=== PATIENT | female | born 1960 | race Two or more races ===

== ENCOUNTER 2019-05-22 21:41 | Emergency (ER) | payer OTHER ==
[~2019-05-22] VITALS: Ht 157.5 cm; Wt 74.4 kg
[2019-05-22] MEDS ORDERED: GELATIN SPONGE SIZE 12-7MM SPONGE. ONE (22:05)
[2019-05-22 22:20] LABS: BASO # 0.1 x10^3/uL (0.0-0.2); BASO % 1 % (0-3); EOS # 0.4 x10^3/uL (0.0-0.7); EOS % 5 % (0-3); HEMATOCRIT 37.5 % (36.0-47.0); HEMOGLOBIN 12.7 g/dL (12.0-15.5); LYMPH # 1.6 x10^3/uL (1.0-4.8); LYMPH % 23 % (24-48); MEAN CORPUSCULAR HEMOGLOBIN 33 pg (25-35); MEAN CORPUSCULAR HGB CONC 34 g/dL (31-37); MEAN CORPUSCULAR VOLUME 98 fL (79-100); MONO # 0.5 x10^3/uL (0.0-1.1); MONO % 7 % (0-9); NEUT # 4.6 x10^3/uL (1.8-7.7); NEUT % 64 % (31-73); PLATELET COUNT 153 x10^3/uL (140-400); RED BLOOD COUNT 3.82 x10^6/uL (3.50-5.40); RED CELL DISTRIBUTION WIDTH 13.2 % (11.5-14.5); WHITE BLOOD COUNT 7.2 x10^3/uL (4.0-11.0)
[2019-05-22 22:21] VITALS: BP 119/62
[2019-05-22 22:29] LABS: PROTHROMBIN TIME PATIENT 26.3 SEC (11.7-14.0)
[2019-05-22] MEDS ORDERED: GELATIN SPONGE SIZE 12-7MM SPONGE. TP ONE (22:30)
--- NOTE | 2019-05-22 22:40 | PHYS DOC ---
Past Medical History Past Medical History: Anemia, High Cholesterol, Hypertension Additional Past Medical Histor: secondary hyperparathyroid, "thick blood", immune glomerulonephritis Past Surgical History: Hysterectomy Additional Past Surgical Histo: , kidney transplant Additional Information: Nonsmoker Alcohol Use: None Drug Use: None Adult General Chief Complaint Chief Complaint: DIALYSIS PROBLEM HPI HPI Patient is a 59-year-old female who presents with uncontrollable bleeding after dialysis. She was transferred by EMS from her dialysis clinic due to 45 minutes uncontrollable bleeding. They tried to hold pressure, but it did not stop. They bandaged and clamped it to control the bleeding for transfer by EMS. There was no visible bleeding with the clamp in place. On Sunday this week her INR was 1.3 so her dose of Warfarin was increased from 2 mg to 4 mg. She has had no other bleeding or bruising and no head injury. She is having no nausea, vomiting, dizziness, lightheadedness, or pain. She has never had a bleeding episode like this before. Review of Systems Review of Systems Constitutional: Denies fever or chills Eyes: Denies redness or eye pain HENT: Denies nasal congestion or sore throat Respiratory: Denies cough or shortness of breath Cardiovascular: Denies chest pain or palpitations GI: Denies abdominal pain, nausea, or vomiting : Denies dysuria or hematuria Musculoskeletal: Denies back pain or joint pain Integument: Denies rash or skin lesions Neurologic: Denies headache, focal weakness or sensory changes Complete systems were reviewed and found to be within normal limits, except as documented in this note. Current Medications Current Medications Current Medications Medications (Trade) Dose Ordered Sig/[facility] Start Time Stop Time Status Last Admin Dose Admin Gelatin (Gelfoam Size 12-7mm) 1 each 1X ONCE 05/22/19 22:30 05/22/19 22:31 DC 05/22/19 22:47 1 EACH Allergies Allergies Allergies Coded Allergies Type Severity Reaction Last Updated Verified No Known Drug Allergies 05/22/19 No Physical Exam Physical Exam Constitutional: Well developed, well nourished, no acute distress, non-toxic appearance HENT: Normocephalic, atraumatic, oropharynx moist Eyes: PERRL, EOMI, conjunctiva normal, no discharge Neck: Normal range of motion, no tenderness, supple Cardiovascular: Heart rate normal, regular rhythm Lungs & Thorax: Bilateral breath sounds clear to auscultation, no wheezing Abdomen: Soft, no tenderness Skin: Warm, dry, no erythema, no rash, left elbow clamp is removed and bandage is uncovered to find a bleeding puncture site. Puncture site above is not bleeding. Back: No tenderness, no CVA tenderness Extremities: No tenderness, ROM intact, no edema Neurologic: Alert and oriented X 3, normal motor function, normal sensory function, no focal deficits noted Psychologic: Affect normal, judgement normal, mood normal Current Patient Data Vital Signs Vital Signs Date Time Temp Pulse Resp B/P (MAP) Pulse Ox O2 Delivery O2 Flow Rate FiO2 05/22/19 22:21 74 119/62 (81) 97 Room Air 05/22/19 21:52 98.4 20 98.4 Lab Values Laboratory Tests Test 05/22/19 22:13 White Blood Count 7.2 x10^3/uL (4.0-11.0) Red Blood Count 3.82 x10^6/uL (3.50-5.40) Hemoglobin 12.7 g/dL (12.0-15.5) Hematocrit 37.5 % (36.0-47.0) Mean Corpuscular Volume 98 fL (79-100) Mean Corpuscular Hemoglobin 33 pg (25-35) Mean Corpuscular Hemoglobin Concent 34 g/dL (31-37) Red Cell Distribution Width 13.2 % (11.5-14.5) Platelet Count 153 x10^3/uL (140-400) Neutrophils (%) (Auto) 64 % (31-73) Lymphocytes (%) (Auto) 23 % (24-48) L Monocytes (%) (Auto) 7 % (0-9) Eosinophils (%) (Auto) 5 % (0-3) H Basophils (%) (Auto) 1 % (0-3) Neutrophils # (Auto) 4.6 x10^3/uL (1.8-7.7) Lymphocytes # (Auto) 1.6 x10^3/uL (1.0-4.8) Monocytes # (Auto) 0.5 x10^3/uL (0.0-1.1) Eosinophils # (Auto) 0.4 x10^3/uL (0.0-0.7) Basophils # (Auto) 0.1 x10^3/uL (0.0-0.2) Prothrombin Time 26.3 SEC (11.7-14.0) H Prothrombin Time INR 2.4 (0.8-1.1) H PTT 43 SEC (24-38) H Laboratory Tests 05/22/19 22:13 EKG EKG [] Radiology/Procedures Radiology/Procedures [] Course & Med Decision Making Course & Med Decision Making Pertinent Lab studies reviewed. (See chart for details) Ms. Cavazos is a 59-year-old female who presented for uncontrollable bleeding. She was at dialysis clinic, and at the end of her dialysis treatment they were not able to control the bleeding from her puncture site. They held pressure for 45 minutes, and then a clamp was placed and she was transferred by EMS to the ED. On arrival, there is no active bleeding visible through the bandage and clamp. Once the clamp was removed in the bandage and removed, there is active bleeding from the puncture site. Gel Foam was placed with a pressure bandage, and pressure was held for 5 minutes. After 5 minutes there is no active bleeding visible through the bandaging. On Sunday her INR was 1.3 so her dose of Warfarin was increased from 2 mg to 4 mg. Today her INR is 2.5 and her other laboratory values are not significant. We told her to hold her evening dose of Warfarin and continue normal dose starting tomorrow. Patient stable for discharge with outpatient follow-up with PCP. Discussed findings and plan with patient and family, who acknowledge understanding and agreement. [] Dragon Disclaimer Dragon Disclaimer This electronic medical record was generated, in whole or in part, using a voice recognition dictation system. Departure Departure Impression: Primary Impression: Hemorrhage from dialysis shunt Disposition: 01 HOME, SELF-CARE Condition: STABLE Referrals: NO PCP (PCP) Patient Instructions: Dialysis, Care After Additional Instructions: INR 2.5. Hold Sunday's dose of Coumadin, then continue normal Coumadin as previously directed. Problem Qualifiers Primary Impression: Hemorrhage from dialysis shunt Encounter type: initial encounter Qualified Codes: T82.838A - Hemorrhage due to vascular prosthetic devices, implants and grafts, initial encounter TYLER REGAN DO May 22, 2019 22:40
== END 2019-05-22 22:56 | disposition home or self-care (01) ==
LOC: ER 21:41
DX: T82.838A Hemorrhage due to vascular prosthetic devices, implants and grafts, initial encounter (principal); E78.00 Pure hypercholesterolemia, unspecified; I10 Essential (primary) hypertension; Z90.710 Acquired absence of both cervix and uterus; Z94.0 Kidney transplant status; Y84.8 Other medical procedures as the cause of abnormal reaction of the patient, or of later complication, without mention of misadventure at the time of the procedure; Y92.89 Other specified places as the place of occurrence of the external cause
CPT/HCPCS: 36415; 85025; 85610; 85730; 99284

== ENCOUNTER 2019-07-29 21:57 | Emergency (ER) | payer OTHER ==
[~2019-07-29] VITALS: Ht 157.5 cm; Wt 80.7 kg
[2019-07-29 22:15] VITALS: BP 161/85
--- NOTE | 2019-07-29 22:40 | PHYS DOC ---
Past Medical History Past Medical History: Anemia, High Cholesterol, Hypertension Additional Past Medical Histor: secondary hyperparathyroid, "thick blood", immune glomerulonephritis Past Surgical History: Hysterectomy Additional Past Surgical Histo: , kidney transplant Alcohol Use: None Drug Use: None Adult General Chief Complaint Chief Complaint: DIALYSIS PROBLEM HPI HPI Patient is a 59 year old female who is a dialysis patient who receive dialysis ending around 6:45 PM. Patient states that her dialysis fistula would not stop bleeding after dialysis. She states that after would not stop bleeding that she decided she should come to the ER. Denies any other complaints. Denies dizziness. Denies chest pain. Review of Systems Review of Systems Constitutional: Denies fever or chills [] Eyes: Denies change in visual acuity, redness, or eye pain [] HENT: Denies nasal congestion or sore throat [] Respiratory: Denies cough or shortness of breath [] Cardiovascular: No additional information not addressed in HPI [] GI: Denies abdominal pain, nausea, vomiting, bloody stools or diarrhea [] : Denies dysuria or hematuria [] Musculoskeletal: Denies back pain or joint pain [] Integument: Reports bleeding from L fistula. Neurologic: Denies headache, focal weakness or sensory changes [] Endocrine: Denies polyuria or polydipsia [] Complete systems were reviewed and found to be within normal limits, except as documented in this note. Allergies Allergies Allergies Coded Allergies Type Severity Reaction Last Updated Verified No Known Drug Allergies 05/22/19 No Physical Exam Physical Exam Constitutional: Well developed, well nourished, no acute distress, non-toxic appearance. [] HENT: Normocephalic, atraumatic, bilateral external ears normal, oropharynx moist, no oral exudates, nose normal. [] Eyes: PERRLA, EOMI, conjunctiva normal, no discharge. [] Neck: Normal range of motion, no tenderness, supple, no stridor. [] Cardiovascular:Heart rate regular rhythm, no murmur [] Lungs & Thorax: Bilateral breath sounds clear to auscultation [] Abdomen: Bowel sounds normal, soft, no tenderness, no masses, no pulsatile masses. [] Skin: bleeding appears to have stopped from the fistula. Back: No tenderness, no CVA tenderness. [] Extremities: No tenderness, no cyanosis, no clubbing, ROM intact, no edema. [] Neurologic: Alert and oriented X 3, normal motor function, normal sensory function, no focal deficits noted. [] Psychologic: Affect normal, judgement normal, mood normal. [] Current Patient Data Vital Signs Vital Signs Date Time Temp Pulse Resp B/P (MAP) Pulse Ox O2 Delivery O2 Flow Rate FiO2 07/29/19 22:15 98.2 67 18 161/85 (110) 97 Room Air 98.2 EKG EKG [] Radiology/Procedures Radiology/Procedures [] Course & Med Decision Making Course & Med Decision Making Pertinent Labs and Imaging studies reviewed. (See chart for details) Nursing held pressure to site before I arrived in room. Dialysis site has stopped bleeding. Will d/c home. Dragon Disclaimer [email or web address] Disclaimer This electronic medical record was generated, in whole or in part, using a voice recognition dictation system. Departure Departure Impression: Primary Impression: Complication of AV dialysis fistula Disposition: HOME, SELF-CARE Condition: STABLE Referrals: NO PCP (PCP) Additional Instructions: Thank you for visiting [facility]. We appreciate you trusting us with your care. If any additional problems come up don't hesitate to return to visit us. Please follow up with your primary care provider so they can plan ad ditional care if needed and know about the problem that you had. If symptoms worsen come back to the Emergency Department. Any concerning symptoms that start such as chest pain, shortness of air, weakness or numbness on one side of the body, running high fevers or any other concerning symptoms return to the ER. Please return to ER if starts bleeding again. Problem Qualifiers Primary Impression: Complication of AV dialysis fistula Encounter type: initial encounter Qualified Codes: T82.9XXA - Unspecified complication of cardiac and vascular prosthetic device, implant and graft, initial encounter TYLER LERNER APRN Jul 29, 2019 22:39
== END 2019-07-29 22:52 | disposition home or self-care (01) ==
LOC: ER 21:57
DX: T82.590A Other mechanical complication of surgically created arteriovenous fistula, initial encounter (principal); E78.00 Pure hypercholesterolemia, unspecified; I10 Essential (primary) hypertension; Z90.710 Acquired absence of both cervix and uterus; Z98.890 Other specified postprocedural states
CPT/HCPCS: 99281; 99283

== ENCOUNTER → 2019-09-01 | Outpatient (CLI) | payer OTHER ==
[2019-09-01 10:38] LABS: BASO # 0.1 x10^3/uL (0.0-0.2); BASO % 1 % (0-3); EOS # 0.3 x10^3/uL (0.0-0.7); EOS % 6 % (0-3); HEMATOCRIT 34.5 % (36.0-47.0); HEMOGLOBIN 11.7 g/dL (12.0-15.5); LYMPH # 1.5 x10^3/uL (1.0-4.8); LYMPH % 25 % (24-48); MEAN CORPUSCULAR HEMOGLOBIN 37 pg (25-35); MEAN CORPUSCULAR HGB CONC 34 g/dL (31-37); MEAN CORPUSCULAR VOLUME 108 fL (79-100); MONO # 0.6 x10^3/uL (0.0-1.1); MONO % 10 % (0-9); NEUT # 3.4 x10^3/uL (1.8-7.7); NEUT % 59 % (31-73); PLATELET COUNT 179 x10^3/uL (140-400); RED BLOOD COUNT 3.21 x10^6/uL (3.50-5.40); RED CELL DISTRIBUTION WIDTH 14.4 % (11.5-14.5); WHITE BLOOD COUNT 5.9 x10^3/uL (4.0-11.0)
[2019-09-01 11:20] LABS: ALBUMIN 3.8 g/dL (3.4-5.0); ALBUMIN/GLOBULIN RATIO 0.9 (1.0-1.7); CALCIUM 9.2 mg/dL (8.5-10.1); CREATININE 11.2 mg/dL (0.6-1.0); GFR 3.5; POTASSIUM 4.4 mmol/L (3.5-5.1); TOTAL BILIRUBIN 0.3 mg/dL (0.2-1.0); TOTAL PROTEIN 7.9 g/dL (6.4-8.2)
[2019-09-01 19:13] LABS: RHEUMATOID FACTOR <10.0 IU/mL (0.0-13.9)
[2019-09-02 08:13] LABS: HEMOGLOBIN A1C 5.2 % (4.8-5.6)
== END | disposition home or self-care (01) ==
LOC: LAB 10:09
PROVIDERS: ATTEND Podiatrist Foot & Ankle Surgery
DX: G60.9 Hereditary and idiopathic neuropathy, unspecified (principal)
CPT/HCPCS: 36415; 80053; 82607; 82746; 83036; 84165; 84443; 85025; 85651; 86038; 86431; 86592

== ENCOUNTER → 2019-09-08 | Outpatient (CLI) | payer OTHER | END | disposition home or self-care (01) | LOC: LAB 10:16 | PROVIDERS: ATTEND Podiatrist Foot & Ankle Surgery | DX: Z02.83 Encounter for blood-alcohol and blood-drug test (principal) | CPT/HCPCS: 36415 ==

== ENCOUNTER 2019-10-23 20:47 | Emergency (ER) | payer OTHER ==
[~2019-10-23] VITALS: Ht 157.5 cm; Wt 78.9 kg
[2019-10-23 21:49] VITALS: BP 116/71
--- NOTE | 2019-10-23 22:16 | PHYS DOC ---
Past Medical History Past Medical History: Anemia, High Cholesterol, Hypertension, Renal Disease Additional Past Medical Histor: secondary hyperparathyroid, "thick blood", immune glomerulonephritis Past Surgical History: Hysterectomy Additional Past Surgical Histo: , kidney transplant Alcohol Use: None Drug Use: None Adult General Chief Complaint Chief Complaint: DIALYSIS PROBLEM HPI HPI Patient is a 59 year old Female with history of end-stage kidney disease on dialysis Sunday, , Sunday who presents to the ED today to be evaluated for bleeding fistula. Patient reports she completed dialysis around 6 PM and noted the fistula was still bleeding. Fistula clamps were applied to the area. Review of Systems Review of Systems Constitutional: Denies fever or chills [] Eyes: Denies change in visual acuity, redness, or eye pain [] HENT: Denies nasal congestion or sore throat [] Respiratory: Denies cough or shortness of breath [] Cardiovascular: No additional information not addressed in HPI [] GI: Denies abdominal pain, nausea, vomiting, bloody stools or diarrhea [] : Denies dysuria or hematuria [] Musculoskeletal: Denies back pain or joint pain [] Integument: bleeding dialysis fistula Neurologic: Denies headache, focal weakness or sensory changes [] All other systems were reviewed and found to be within normal limits, except as documented in this note. Allergies Allergies Allergies Coded Allergies Type Severity Reaction Last Updated Verified No Known Drug Allergies 05/22/19 No Physical Exam Physical Exam Constitutional: Well developed, well nourished, no acute distress, non-toxic appearance. [] HENT: Normocephalic, atraumatic, bilateral external ears normal, oropharynx moist, no oral exudates, nose normal. [] Eyes: PERRLA, EOMI, conjunctiva normal, no discharge. [] Neck: Normal range of motion, no tenderness, supple, no stridor. [] Cardiovascular:Heart rate regular rhythm, no murmur [] Lungs & Thorax: Bilateral breath sounds clear to auscultation [] Abdomen: Bowel sounds normal, soft, no tenderness, no masses, no pulsatile masses. [] Skin: left upper extremity with clumps over the dialysis fistula. Parents were released, small amount of bleeding noted. Clumps already re-applied. Back: No tenderness, no CVA tenderness. [] Extremities: No tenderness, no cyanosis, no clubbing, ROM intact, no edema. [] Neurologic: Alert and oriented X 3, normal motor function, normal sensory function, no focal deficits noted. [] Psychologic: Affect normal, judgement normal, mood normal. [] Current Patient Data Vital Signs Vital Signs Date Time Temp Pulse Resp B/P (MAP) Pulse Ox O2 Delivery O2 Flow Rate FiO2 10/23/19 20:48 98.0 80 20 112/73 (86) 98 Room Air 98.0 EKG EKG [] Radiology/Procedures Radiology/Procedures [] Course & Med Decision Making Course & Med Decision Making Pertinent Labs and Imaging studies reviewed. (See chart for details) This is a 59-year-old female patient who presents to the ED today with a bleeding dialysis fistula. Bleeding began at 6 PM. Dialysis clamps were applied. Slight bleeding noted on arrival to the ED, clamps were left on. Overtime Bleeding Has Stopped. Patient Was Discharged Back to Home. Dragon Disclaimer Dragon Disclaimer This electronic medical record was generated, in whole or in part, using a voice recognition dictation system. Departure Departure Impression: Primary Impression: Hemorrhage from arteriovenous dialysis graft Disposition: 01 HOME, SELF-CARE Condition: STABLE Referrals: NO PCP (PCP) follow up with your doctor as needed Patient Instructions: Dialysis Additional Instructions: Bleeding has stopped from your dialysis fistula. Follow-up with your doctor. Come back to the ED at any point symptoms recur SUSHMA CESAR APRN Oct 23, 2019 22:16
== END 2019-10-23 22:30 | disposition home or self-care (01) ==
LOC: ER 20:47
DX: T82.838A Hemorrhage due to vascular prosthetic devices, implants and grafts, initial encounter (principal); I12.0 Hypertensive chronic kidney disease with stage 5 chronic kidney disease or end stage renal disease; N18.6 End stage renal disease; Z99.2 Dependence on renal dialysis; Z94.0 Kidney transplant status; E78.00 Pure hypercholesterolemia, unspecified; Z86.2 Personal history of diseases of the blood and blood-forming organs and certain disorders involving the immune mechanism; Z90.710 Acquired absence of both cervix and uterus; Y82.8 Other medical devices associated with adverse incidents; Y92.89 Other specified places as the place of occurrence of the external cause
CPT/HCPCS: 99284